=== PATIENT | male | born 1980 | race Caucasian/White ===

== ENCOUNTER 2018-04-28 02:38 | Emergency (ER) | payer MEDICAID ==
[~2018-04-28] VITALS: Ht 185.4 cm; Wt 83.2 kg
[~2018-04-28 02:38] MED LIST: HYDR-4383 PO
[2018-04-28 02:42] VITALS: BP 139/87
[2018-04-28] MEDS ORDERED: ondansetron 4mg rapidly disintigrating tab PO ONE (02:55)
[2018-04-28] MEDS ORDERED: ketorolac trometh inj. 60 MG/2 ML VIAL IM ONE (02:55)
[2018-04-28] MEDS ORDERED: amoxicillin 250mg capsule PO ONE (02:55)
[2018-04-28] MEDS ORDERED: HYDROcodone/acetaminophen 5mg/325mg tablet PO ONE (02:55)
[2018-04-28] MEDS ORDERED: AMOX500C2 PO (02:57)
[2018-04-28] MEDS ORDERED: ACET-812 PO (02:57)
== END 2018-04-28 03:41 | disposition home or self-care (01) ==
LOC: ER 02:39
DX: K08.89 Other specified disorders of teeth and supporting structures (principal); Z79.2 Long term (current) use of antibiotics; Z79.899 Other long term (current) drug therapy
CPT/HCPCS: 96372; 99284; J1885

== ENCOUNTER 2018-04-28 23:49 | Emergency (ER) | payer MEDICAID, OTHER ==
[~2018-04-28] VITALS: Ht 172.7 cm; Wt 80.0 kg
[~2018-04-28 23:49] MED LIST changes: +ACET-812 PO; +AMOX500C2 PO
[2018-04-28 23:51] VITALS: BP 175/100
[2018-04-29] MEDS ORDERED: acetaminophen 325mg tablet PO ONE (00:05)
== END 2018-04-29 01:12 ==
LOC: ER 23:50
DX: S02.2XXA Fracture of nasal bones, initial encounter for closed fracture (principal); Y04.0XXA Assault by unarmed brawl or fight, initial encounter; Y93.89 Activity, other specified; Y92.149 Unspecified place in prison as the place of occurrence of the external cause; Y99.8 Other external cause status
CPT/HCPCS: 70450; 70486; 99284